=== PATIENT | male | born 1935 | race Caucasian/White ===

== ENCOUNTER 2017-11-23 13:08 | Emergency (ER) | payer OTHER ==
[~2017-11-23] VITALS: Ht 172.7 cm; Wt 77.1 kg
[~2017-11-23 13:08] MED LIST: COUMADIN2 MG; ELIQUIS5 MG; HYZAAR 100-121 UDTAB; LOTREL 10-20 MG1 CAP PO; VITAMIN B122500 MCG; [UNRECOGNIZED DRUG - OTHER]; [UNRECOGNIZED DRUG - OTHER]
== END 2017-11-23 17:25 | disposition home or self-care (01) ==
LOC: ER 13:08
DX: S02.2XXA Fracture of nasal bones, initial encounter for closed fracture (principal); S40.012A Contusion of left shoulder, initial encounter; S20.212A Contusion of left front wall of thorax, initial encounter; W01.198A Fall on same level from slipping, tripping and stumbling with subsequent striking against other object, initial encounter; Y93.01 Activity, walking, marching and hiking; Y92.018 Other place in single-family (private) house as the place of occurrence of the external cause; Y99.8 Other external cause status

== ENCOUNTER 2019-03-29 10:42 | Emergency (ER) | payer OTHER ==
[~2019-03-29] VITALS: Ht 172.7 cm; Wt 78.9 kg
[2019-03-29] MEDS ORDERED: FOLIC ACID0.8 M1 (11:11)
== END 2019-03-29 15:55 | disposition home or self-care (01) ==
LOC: ER 10:42
DX: S20.221A Contusion of right back wall of thorax, initial encounter (principal); M54.5 Low back pain; R07.89 Other chest pain; W01.198A Fall on same level from slipping, tripping and stumbling with subsequent striking against other object, initial encounter; Y93.89 Activity, other specified; Y92.012 Bathroom of single-family (private) house as the place of occurrence of the external cause; Y99.8 Other external cause status

== ENCOUNTER 2020-08-28 11:30 | Emergency (ER) | payer OTHER ==
[~2020-08-28] VITALS: Ht 172.7 cm; Wt 77.1 kg
[~2020-08-28 11:30] MED LIST changes: +FOLIC ACID0.8 M1
== END 2020-08-28 14:54 | disposition home or self-care (01) ==
LOC: ER 11:30
DX: S70.11XA Contusion of right thigh, initial encounter (principal); W22.8XXA Striking against or struck by other objects, initial encounter; Y93.89 Activity, other specified; Y92.013 Bedroom of single-family (private) house as the place of occurrence of the external cause; Y99.8 Other external cause status

== ENCOUNTER 2020-09-20 14:44 | Emergency (ER) | payer OTHER ==
[~2020-09-20] VITALS: Ht 172.7 cm; Wt 77.1 kg
== END 2020-09-20 20:47 | disposition home or self-care (01) ==
LOC: ER 14:44
DX: S20.211A Contusion of right front wall of thorax, initial encounter (principal); R10.11 Right upper quadrant pain; R26.2 Difficulty in walking, not elsewhere classified; R53.81 Other malaise; V47.5XXA Car driver injured in collision with fixed or stationary object in traffic accident, initial encounter; Y93.89 Activity, other specified; Y92.488 Other paved roadways as the place of occurrence of the external cause; Y99.8 Other external cause status

== ENCOUNTER 2022-02-15 07:19 | Outpatient (CLI) | payer OTHER | END 2022-02-15 07:20 | disposition home or self-care (01) | LOC: NUCLEAR 07:19 | PROVIDERS: ATTEND Internal Medicine Cardiovascular Disease | DX: I25.9 Chronic ischemic heart disease, unspecified (principal); I50.9 Heart failure, unspecified | CPT/HCPCS: 78452; 93017; A9500; J0153 ==

== ENCOUNTER 2022-02-19 12:54 | Outpatient (CLI) | payer OTHER | END 2022-02-19 13:01 | disposition home or self-care (01) | LOC: RAD 12:54 | PROVIDERS: ATTEND Orthopaedic Surgery | DX: R07.9 Chest pain, unspecified (principal); M25.561 Pain in right knee; M25.562 Pain in left knee ==

== ENCOUNTER 2022-02-20 08:29 | Outpatient (CLI) | payer OTHER | END 2022-02-20 14:38 | disposition home or self-care (01) | LOC: LAB 08:29 | PROVIDERS: ATTEND Orthopaedic Surgery | DX: D68.9 Coagulation defect, unspecified (principal); E78.2 Mixed hyperlipidemia; N39.0 Urinary tract infection, site not specified; Z03.818 Encounter for observation for suspected exposure to other biological agents ruled out ==

== ENCOUNTER 2022-03-05 09:45 | Inpatient (IN) | payer OTHER ==
[~2022-03-05] VITALS: Ht 172.7 cm; Wt 75.7 kg
[2022-03-11] MEDS ORDERED: QC TUSSIN DM L118 ML PO (08:35)
[2022-03-11] MEDS ORDERED: LOSARTAN-HCTZ1 EACH (08:36)
[2022-03-11] MEDS ORDERED: QC TUSSIN DM L118 ML (08:36)
[2022-03-11] MEDS ORDERED: ARTHRITIS PAIN650 MG (08:36)
== END 2022-03-13 21:15 | DRG 470 ==
LOC: O/R 03-11 05:30 → SURH 03-11 05:30
PROVIDERS: ADMIT Orthopaedic Surgery; ATTEND Orthopaedic Surgery
PROC: 0SRC0J9 Replacement of Right Knee Joint with Synthetic Substitute, Cemented, Open Approach (ICD-10-PCS; principal; 2022-03-11 07:00)
DX: M17.11 Unilateral primary osteoarthritis, right knee (principal); I69.851 Hemiplegia and hemiparesis following other cerebrovascular disease affecting right dominant side; D62 Acute posthemorrhagic anemia; M85.661 Other cyst of bone, right lower leg; I10 Essential (primary) hypertension; I48.91 Unspecified atrial fibrillation; Z96.651 Presence of right artificial knee joint; Z20.822 Contact with and (suspected) exposure to COVID-19

== ENCOUNTER 2022-07-01 10:21 | Outpatient (CLI) | payer OTHER ==
[~2022-07-01 10:21] MED LIST changes: +ARTHRITIS PAIN650 MG; +LOSARTAN-HCTZ1 EACH; +QC TUSSIN DM L118 ML; +QC TUSSIN DM L118 ML PO
== END 2022-07-01 10:31 | disposition home or self-care (01) ==
LOC: RAD 10:21
PROVIDERS: ATTEND Orthopaedic Surgery
DX: M25.561 Pain in right knee (principal); M25.562 Pain in left knee

== ENCOUNTER 2022-08-28 09:32 | Outpatient (CLI) | payer OTHER | END 2022-08-28 09:43 | disposition home or self-care (01) | LOC: LAB 09:32 | PROVIDERS: ATTEND Specialist | DX: N39.9 Disorder of urinary system, unspecified (principal); M00.80 Arthritis due to other bacteria, unspecified joint; E11.69 Type 2 diabetes mellitus with other specified complication; Z12.6 Encounter for screening for malignant neoplasm of bladder; Z13.220 Encounter for screening for lipoid disorders; E03.8 Other specified hypothyroidism; E11.21 Type 2 diabetes mellitus with diabetic nephropathy; D64.89 Other specified anemias; J45.998 Other asthma ==

== ENCOUNTER → 2024-08-03 07:07 | Outpatient (CLI) | payer OTHER | END | disposition home or self-care (01) | LOC: NUCLEAR 07:00 | PROVIDERS: ATTEND Internal Medicine | DX: I25.110 Atherosclerotic heart disease of native coronary artery with unstable angina pectoris (principal) | CPT/HCPCS: 78452; 93017; A9500; J0153 ==

== ENCOUNTER 2024-10-11 16:12 | Emergency (ER) | payer OTHER ==
[~2024-10-11] VITALS: Ht 172.7 cm; Wt 76.2 kg
[2024-10-11] MEDS ORDERED: GUAIFENESIN/DEXTROMETHORPHAN 100MG/10ML BLIST.PACK PO ONE ×2 (19:15→20:05)
[2024-10-11 20:24] LABS: BASO % 0.5 % (0.1-1.2); EOS # 0.23 (0.04-0.54); EOS % 4.1 % (0.7-7.0); HEMATOCRIT 34.6 % (40.1-51.0); HEMOGLOBIN 11.3 g/dL (13.7-17.5); LYMPH # 2.02 (1.18-3.74); LYMPH % 36.2 % (19.3-53.1); MEAN CORPUSCULAR HEMOGLOBIN 27.8 pg (25.6-32.2); MONO # 0.74 (0.24-0.82); NEUT # 2.55 (1.56-6.13); NEUT % 45.7 % (34.0-71.1); PLATELET COUNT 181 K/uL (163-369); RED BLOOD COUNT 4.06 M/uL (4.63-6.08); RED CELL DISTRIBUTION WIDTH 14.5 % (11.6-14.4)
[2024-10-11 20:26] LABS: MONO % 13.3 % (4.7-12.5)
[2024-10-11 20:44] LABS: CALCIUM 9.7 mg/dL (8.5-10.1); CREATININE SERUM 1.15 mg/dL (0.70-1.30); GFR 60.15; POTASSIUM 4.11 mEq/L (3.5-5.1)
[2024-10-11 21:21] LABS: INFLUENZA A AG NEGATIVE (NEGATIVE); INFLUENZA B AG NEGATIVE (NEGATIVE)
[2024-10-11 21:38] LABS: COVID-19 AG POSITIVE (NEGATIVE)
[2024-10-11] MEDS ORDERED: TUSSIN DM LIQU118 ML PO (22:25)
[2024-10-11] MEDS ORDERED: PAXLOVID 150-11 EAC2 PO (22:25)
[2024-10-11] MEDS ORDERED: ZITHROMAX500 MG PO (22:37)
== END 2024-10-11 22:46 ==
LOC: ER 16:12
PROVIDERS: Preventive Medicine Public Health & General Preventive Medicine
DX: U07.1 COVID-19 (principal); J00 Acute nasopharyngitis [common cold]; I10 Essential (primary) hypertension